=== PATIENT | female | born 1985 | race Caucasian/White ===

== ENCOUNTER → 2017-10-27 | Outpatient (RCR) | payer BC ==
[~2017-10-27] MED LIST: ACHD5005 PO; AMIT10TA6 PO; CEPH-38 PO; DICY20TA10 PO; DICY20TA33 PO; GBPN100C PO; RANI150T11 PO; SULF1TAB35 PO; TRAM50TA2 PO; VITAMIN D PO
== END | disposition home or self-care (01) ==
LOC: CARD 07:57
PROVIDERS: ATTEND Family Medicine
DX: R00.2 Palpitations (principal)
CPT/HCPCS: 93225; 93226

== ENCOUNTER → 2017-10-28 | Outpatient (CLI) | payer BC ==
--- NOTE | 2017-10-28 16:36 | Diagnostic Imaging Report ---
INDICATION: Pelvic pain. Polycystic ovarian syndrome. FINDINGS: The uterus measures 7.8 x 3.4 x 3.7 cm. The endometrial stripe is poorly visualized but appears to measure approximately 5 mm. No masses are demonstrated. The right ovary is not identified. The left ovary measures 2.6 x 2.1 x 3.6 cm. No follicular cysts are demonstrated. There is normal blood flow to the left ovary. There is no free fluid. IMPRESSION: 1. Limited pelvic ultrasound as described. 2. The uterus appears normal. 3. The left ovary is normal. 4. The right ovary is not visualized. Dictated by: Dictated on workstation # [id number]
== END ==
LOC: RAD 11:47
PROVIDERS: ATTEND Family Medicine
DX: N94.89 Other specified conditions associated with female genital organs and menstrual cycle (principal)
CPT/HCPCS: 76830; 76856

== ENCOUNTER → 2018-02-03 | Outpatient (CLI) | payer BC ==
[2018-02-03 11:00] LABS: BASOPHILS % (AUTO) 1 % (0-10); EOSINOPHILS # (AUTO) 0.2 10^3/uL (0.0-0.3); EOSINOPHILS % (AUTO) 3 % (0-10); HEMATOCRIT 41 % (35-52); HEMOGLOBIN 13.9 G/DL (11.5-16.0); LYMPHOCYTES # (AUTO) 1.5 X 10^3 (1.0-4.0); LYMPHOCYTES % (AUTO) 24 % (12-44); MEAN CORPUSCULAR HEMOGLOBIN 29 PG (25-34); MEAN CORPUSCULAR HGB CONC 34 G/DL (32-36); MEAN CORPUSCULAR VOLUME 86 FL (80-99); MEAN PLATELET VOLUME 10.6 FL (7.4-10.4); MONOCYTES # (AUTO) 0.4 X 10^3 (0.0-1.0); MONOCYTES % (AUTO) 7 % (0-12); NEUTROPHILS # (AUTO) 4.1 X 10^3 (1.8-7.8); NEUTROPHILS % (AUTO) 66 % (42-75); PLATELET COUNT 261 10^3/uL (130-400); RED BLOOD COUNT 4.76 10^6/uL (4.35-5.85); RED CELL DISTRIBUTION WIDTH 13.4 % (10.0-14.5); WHITE BLOOD COUNT 6.2 10^3/uL (4.3-11.0)
[2018-02-03 11:20] LABS: BUN/CREATININE RATIO 16; CALCIUM 9.7 MG/DL (8.5-10.1); CARBON DIOXIDE 25 MMOL/L (21-32); CHLORIDE 106 MMOL/L (98-107); CREATININE SERUM 0.68 MG/DL (0.60-1.30); GFR ESTIMATED > 60; GLUCOSE 90 MG/DL (70-105); POTASSIUM 4.2 MMOL/L (3.6-5.0); SODIUM 139 MMOL/L (135-145)
--- NOTE | 2018-02-03 12:16 | Diagnostic Imaging Report ---
PROCEDURE: CT urinary tract, rule out kidney stone. TECHNIQUE: Multiple contiguous axial images were obtained through the abdomen and pelvis without the use of intravenous contrast. INDICATION: Bilateral flank pain, right greater than left. COMPARISON: 02/24/2016. FINDINGS: Included portions of the lung bases are clear. CT abdomen: Kidneys have an unremarkable noncontrast CT appearance. No renal or ureteral calculi are identified on either side. Additionally, there is no hydroureteronephrosis or other evidence of obstruction. No focal renal masses are identified. The liver, spleen, pancreas, and adrenal glands have an unremarkable noncontrast CT appearance as well. Small bowel loops are nondistended. Normal appendix is identified. There is no loculated fluid collection, free fluid, or free air within the abdomen. No abnormal mesenteric or retroperitoneal adenopathy is seen. Bony structures show no acute abnormalities. CT pelvis: Urinary bladder is unopacified. No calculi are seen within the urinary bladder. Left ovarian cyst measures 4.1 x 4.4 cm and is new when compared to 02/24/2016. There is no free fluid, loculated fluid collection, or free air within the pelvis. No abnormal pelvic adenopathy is identified. Bony structures show no acute abnormalities. IMPRESSION: 1. Moderate-sized left ovarian cyst. Otherwise, unremarkable noncontrast CT of the abdomen and pelvis. Dictated by: Dictated on workstation # [id number]
== END ==
LOC: RAD 10:33
PROVIDERS: ATTEND Family Medicine
DX: N83.202 Unspecified ovarian cyst, left side (principal)
CPT/HCPCS: 36415; 74176; 80048; 85025

== ENCOUNTER → 2018-12-10 | Outpatient (CLI) | payer BC ==
[~2018-12-10] MED LIST changes: +CHOL200078 PO; +CRAN500T2 PO; +METF-760 PO; +PANT20TA3 PO; +PREG75CA PO; +SPIR100T4 PO
--- NOTE | 2018-12-10 13:01 | Diagnostic Imaging Report ---
PROCEDURE: US Non-ob pelvis comp/trans. TECHNIQUE: Multiple real-time grayscale images were obtained of the pelvis in various projections endovaginally. Transabdominal imaging was also performed. INDICATION: Abnormal uterine bleeding. FINDINGS: Uterus measures 6.8 x 4.0 x 3.4 cm. Endometrium is approximately 5 mm in thickness. No myometrial mass is seen. There is a small amount of fluid in the lower uterine segment in the endocervical canal. Right ovary measures 2.5 x 2.3 x 1.6 cm and the left ovary measures 2.7 x 1.6 x 1.9 cm. There appears to be blood flow to both ovaries. No adnexal mass or free fluid is seen. IMPRESSION: Unremarkable pelvic ultrasound apart from a small amount of fluid in the endocervical canal. Dictated by: Dictated on workstation # [id number]
== END ==
LOC: RAD 11:18
PROVIDERS: ATTEND Obstetrics & Gynecology
DX: N93.9 Abnormal uterine and vaginal bleeding, unspecified (principal)
CPT/HCPCS: 76830; 76856

== ENCOUNTER 2018-12-15 05:34 | Outpatient (CLI) | payer BC ==
[~2018-12-15] VITALS: Ht 152.4 cm; Wt 121.2 kg
[~2018-12-15 05:34] MED LIST changes: -CHOL200078 PO; -CRAN500T2 PO; -METF-760 PO; -PANT20TA3 PO; -PREG75CA PO; -SPIR100T4 PO
[2018-12-15] MEDS ORDERED: METF-760 PO (10:05)
[2018-12-15] MEDS ORDERED: CRAN500T2 PO (10:05)
[2018-12-15] MEDS ORDERED: PANT20TA3 PO (10:05)
[2018-12-15] MEDS ORDERED: CHOL200078 PO (10:05)
[2018-12-15] MEDS ORDERED: PREG75CA PO (10:05)
[2018-12-15] MEDS ORDERED: SPIR100T4 PO (10:05)
== END 2018-12-15 10:10 | disposition home or self-care (01) ==
LOC: PREOP 05:34
PROVIDERS: ATTEND Obstetrics & Gynecology
DX: Z01.818 Encounter for other preprocedural examination (principal)

== ENCOUNTER 2018-12-20 08:19 | Day surgery (SDC) | payer BC ==
[2018-12-20] VITALS (10 sets, daily range): BP systolic 121–149; BP diastolic 64–95
[~2018-12-20] VITALS: Ht 152.4 cm; Wt 121.2 kg
[~2018-12-20 08:19] MED LIST changes: +CHOL200078 PO; +CRAN500T2 PO; +METF-760 PO; +PANT20TA3 PO; +PREG75CA PO; +SPIR100T4 PO
[2018-12-20] MEDS ORDERED: LIDOCAINE PF 2% 5 ML (XYLOCAINE) VIAL ONE (08:41)
[2018-12-20] MEDS ORDERED: proPOfol 200 MG/20 ML (DIPRIVAN) VIAL IV ONE (08:41)
[2018-12-20] MEDS ORDERED: DEXAMETHASONE 10 MG/ML (DECADRON) 1 ML VIAL ONE (08:41)
[2018-12-20] MEDS ORDERED: fentaNYL INJECTION 100 MCG/2 ML AMP ONE (08:41)
[2018-12-20] MEDS ORDERED: ONDANSETRON 4 MG/2 ML (SDV) Z0FRAN ONE (08:41)
[2018-12-20] MEDS ORDERED: MIDAZOLAM 2 MG/2 ML (VERSED) VIAL ONE (08:42)
[2018-12-20] MEDS ORDERED: SEVOFLURANE (ULTANE) 15 ML INHAL SOLN ONE (08:42)
[2018-12-20] MEDS ORDERED: BUP/EPI 0.25% 1:200,000 (MARCAINE) 10 ML VIAL IJ ONE (08:50)
[2018-12-20] MEDS ORDERED: FAMOTIDINE 20MG/2ML IV (PEPCID) IVP ONE (08:50)
--- NOTE | 2018-12-20 08:58 | Progress Note-Pre Operative ---
Pre-Operative Progress Note H&P Reviewed The H&P was reviewed, patient examined and no changes noted. Date Seen by Provider: Dec 20, 2018 Time Seen by Provider: 08:45 Date H&P Reviewed: Dec 20, 2018 Time H&P Reviewed: 08:45 Pre-Operative Diagnosis: AUB, BMI 50 AMIRAH HERNÁNDEZ DO Dec 20, 2018 08:58
[2018-12-20] MEDS ORDERED: D5 LR IV SOLUTION 1,000 ML IV SCH (08:59)
[2018-12-20] MEDS ORDERED: HYDROcodone/APAP 5 MG/325 MG (LORTAB) TAB PO PRN (09:00)
[2018-12-20] MEDS: LACTATED RINGERS 1,000 ML IV PRN ×2 (09:00→10:15)
[2018-12-20] MEDS ORDERED: ONDANSETRON 4 MG/2 ML (SDV) Z0FRAN IVP PRN ×3 (09:00→10:30)
[2018-12-20] MEDS ORDERED: KETOROLAC 30 MG/ML VIAL IVP ONE (09:00)
[2018-12-20] MEDS ORDERED: IBUP-1773 PO (09:03)
[2018-12-20] MEDS ORDERED: ACHD5005 PO (09:03)
--- NOTE | 2018-12-20 09:04 | Discharge Inst-Women's Service ---
Discharge Inst-Women's Serv Depart Medication/Instructions New, Converted or Re-Newed RX: RX on Chart Problems Reviewed?: Yes Consults/Follow Up Additional Follow Up: Yes Orders/Referrals Dr. Hernández in 2-3 Activity Activity: Activity as Tolerated Driving Instructions: You May Drive NO SMOKING: NO SMOKING Nothing Inside Vagina: No Douching, No [place], No Tampons Diet Discharge Diet: No Restrictions Symptoms to Report to : Bleeding Excessive, Pain Increased, Fever Over 101 Degrees F, Vaginal Bleeding Increase, Questions/Concerns For Any Problems or Questions: Contact Your Physician AMIRAH HERNÁNDEZ DO Dec 20, 2018 09:04
[2018-12-20] MEDS ORDERED: FAMOTIDINE 20MG/2ML IV (PEPCID) ONE (09:09)
[2018-12-20 09:28] LABS: BASOPHILS % (AUTO) 1 % (0-10); EOSINOPHILS # (AUTO) 0.2 10^3/uL (0.0-0.3); EOSINOPHILS % (AUTO) 3 % (0-10); HEMATOCRIT 41 % (35-52); HEMOGLOBIN 13.7 G/DL (11.5-16.0); LYMPHOCYTES # (AUTO) 1.7 X 10^3 (1.0-4.0); LYMPHOCYTES % (AUTO) 31 % (12-44); MEAN CORPUSCULAR HEMOGLOBIN 29 PG (25-34); MEAN CORPUSCULAR HGB CONC 33 G/DL (32-36); MEAN CORPUSCULAR VOLUME 87 FL (80-99); MEAN PLATELET VOLUME 11.8 FL (7.4-10.4); MONOCYTES # (AUTO) 0.5 X 10^3 (0.0-1.0); MONOCYTES % (AUTO) 8 % (0-12); NEUTROPHILS # (AUTO) 3.2 X 10^3 (1.8-7.8); NEUTROPHILS % (AUTO) 58 % (42-75); PLATELET COUNT 252 10^3/uL (130-400); RED CELL DISTRIBUTION WIDTH 13.3 % (10.0-14.5); WHITE BLOOD COUNT 5.6 10^3/uL (4.3-11.0)
[2018-12-20] MEDS ORDERED: morphine INJ 10 MG/ML 1ML (SYR OR VIAL) IVP ONE ×2 (09:45→10:30)
[2018-12-20] MEDS ORDERED: LACTATED RINGERS 1,000 ML IV SCH (10:01)
[2018-12-20] MEDS ORDERED: NALOXONE 0.4 MG/ML 1 ML (NARCAN) VIAL IV PRN ×2 (10:15)
[2018-12-20] MEDS ORDERED: ONDANSETRON 4 MG/2 ML (SDV) Z0FRAN IV PRN (10:15)
[2018-12-20] MEDS ORDERED: diphenhydrAMINE 50 MG/ML INJ (BENADRYL) IV PRN (10:15)
[2018-12-20] MEDS ORDERED: EPIDURAL (SUFENTA 0.6MCG/ML BUPIVA 0.125%) 100 ML BAG EPI PRN (10:15)
[2018-12-20] MEDS ORDERED: METOCLOPRAMIDE INJ 10 MG/2 ML (REGLAN) IV PRN (10:15)
--- NOTE | 2018-12-20 11:47 | NUR ---
LORTAB 5/325 MG, ONE TAB, GIVEN PO FOR C/O CRAMPY PELVIC PAIN RATED 7. TAKING PO FLUIDS AND CRACKERS, REPORTS SLIGHT, INTERMITTENT NAUSEA. ZOFRAN 4 MG GIVEN IVP. HAVING MODERATE AMOUNT OF BRIGHT RED BLOODY DRAINAGE TO V-PAD.
--- NOTE | 2018-12-20 12:20 | NUR ---
RATES PELVIC PAIN 4. DENIES NAUSEA. UP TO BR WITH ASSIST, GAIT STEADY, VOIDED. ASSIST BACK TO ROOM AND STATES SHE IS READY TO PROCEED WITH DISMISSAL.
--- NOTE | 2018-12-20 12:47 | Anesthesia-General Post-Op ---
MAC Patient Condition Mental Status/LOC: Same as Preop Cardiovascular: Satisfactory Nausea/Vomiting: Absent Respiratory: Satisfactory Pain: Controlled Complications: Absent Post Op Complications Complications None Follow Up Care/Instructions Patient Instructions None needed. Anesthesiology Discharge Order Discharge Order Patient is doing well, no complaints, stable vital signs, no apparent adverse anesthesia problems. No complications reported per nursing. SEFERINO PARISI CRNA Dec 20, 2018 12:47
--- NOTE | 2018-12-20 21:23 | OPERATIVE REPORT ---
DATE OF SERVICE: 12/20/2018 PREOPERATIVE DIAGNOSES: 1. Abnormal uterine bleeding. 2. BMI greater than 50. POSTOPERATIVE DIAGNOSES: 1. Abnormal uterine bleeding. 2. BMI greater than 50. PROCEDURE: D and C, hysteroscopy. SURGEON: Amirah Hernández DO ANESTHESIA: General LMA. ESTIMATED BLOOD LOSS: Minimal. URINE OUTPUT: 100 mL drained at the start of procedure. FLUIDS: 500 mL of lactated Ringer's solution. FINDINGS: Grossly normal-appearing external female genitalia with hysteroscopic evaluation of the endometrium suggestive for possible arcuate shaped uterus, bilateral patent tubal ostia. No endometrial masses. SPECIMEN SENT: Endometrial curettings. INDICATION FOR PROCEDURE: This 33-year-old female is a patient in consultation from Dr. Skinnre at the [facility] for evaluation of heavy bleeding that has failed more conservative measures with management. I discussed with the patient due to her weight, I had significant concerns for endometrial hyperplasia or malignancy and discussed with her performing a D and C. Risks of the procedure was discussed with the patient in detail. We also discussed hysteroscopic evaluation at the time of the procedure due to some questionable findings on ultrasound. After all of her questions were answered, consent was obtained in the preoperative area and the patient was taken to the operating room. OPERATIVE REPORT IN DETAIL: Once in the operating room, general anesthesia was found to be adequate, she was placed in dorsal lithotomy position, prepped and draped in normal sterile fashion. A timeout was performed. The bladder was drained using straight catheterization. A weighted speculum was inserted into the patient's vagina. A right angle retractor was used to visualize the cervix, which was grasped at 12 o'clock position using a long Allis clamp. Paracervical block was then performed at 3 and 9 o'clock positions on the cervix. Care was taken to aspirate before injecting. 0.25% Marcaine was used as my local anesthetic and 5 mL were injected at each site. After this was done, I gently sound the uterine cavity, depth was found to be approximately 8 cm. I then gently dilated the cervix using Hegar dilators to maximum dilatation approximately 8 mm at which point, I advanced the hysteroscope into the intrauterine cavity using normal saline as my visual medium and the Webbynode fluid management system. I am able to visualize the findings as described in my findings above. There is no hysteroscopic dissection that needs to be performed due to no endometrial neoplasms identified. I then removed the hysteroscope and performed a gentle curettage using a small endometrial curette. A small to moderate amount of endometrial curettings were collected and sent as endometrial curettings, after which there was no active bleeding noted from any of my dissection planes. The instruments were removed from the patient's vagina. The patient tolerated the procedure well and sent to recovery area in stable condition. Lap and sponge counts were correct at the end of the procedure. Instrument count was correct as well. Job ID: [id number] DocumentID: [id number] Dictated Date: 12/20/2018 11:11:07 Trolley Coach Driver Date: 12/20/2018 21:21:49 Dictated By: AMIRAH HERNÁNDEZ DO
== END 2018-12-20 12:52 | disposition home or self-care (01) ==
LOC: SDC 08:19
PROVIDERS: ATTEND Obstetrics & Gynecology
DX: N93.9 Abnormal uterine and vaginal bleeding, unspecified (principal); K21.9 Gastro-esophageal reflux disease without esophagitis; E66.01 Morbid (severe) obesity due to excess calories; G43.909 Migraine, unspecified, not intractable, without status migrainosus; K58.9 Irritable bowel syndrome, unspecified; F32.9 Major depressive disorder, single episode, unspecified; F41.9 Anxiety disorder, unspecified; F43.10 Post-traumatic stress disorder, unspecified; Z68.43 Body mass index [BMI] 50.0-59.9, adult; Z88.8 Allergy status to other drugs, medicaments and biological substances; Z88.0 Allergy status to penicillin; Z88.6 Allergy status to analgesic agent; Z91.040 Latex allergy status; Z79.51 Long term (current) use of inhaled steroids; Z79.899 Other long term (current) drug therapy; Z80.0 Family history of malignant neoplasm of digestive organs; Z83.3 Family history of diabetes mellitus; Z82.49 Family history of ischemic heart disease and other diseases of the circulatory system; Z82.5 Family history of asthma and other chronic lower respiratory diseases; Z87.891 Personal history of nicotine dependence; Z79.84 Long term (current) use of oral hypoglycemic drugs
CPT/HCPCS: 36415; 84703; 85025; 86850; 86900; 86901; 87081

== ENCOUNTER 2019-06-01 12:58 | Emergency (ER) | payer BC ==
[~2019-06-01] VITALS: Ht 152 cm; Wt 120.0 kg
[~2019-06-01 12:58] MED LIST changes: +IBUP-1773 PO
[2019-06-01] MEDS ORDERED: KETOROLAC 30 MG/ML VIAL IVP STA (13:06)
[2019-06-01] MEDS ORDERED: NS IV 1000 ML 1,000 ML IV STA (13:06)
--- NOTE | 2019-06-01 13:06 | ED Abdominal Pain ---
General Chief Complaint: Abdominal/GI Problems Stated Complaint: ABD PAIN,VOMITING Nursing Triage Note: RIGHT SIDED ABD PAIN THAT RADIATES INTO HER BACK THAT STARTED LAST NIGHT. Sepsis Screen: No Definite Risk Source of Information: Patient Exam Limitations: No Limitations History of Present Illness Date Seen by Provider: Jun 01, 2019 Time Seen by Provider: 13:06 Initial Comments 33-year-old female presents with right-sided lower abdominal pain that radiates into her right flank. He reports the pain started last night. That she is had some nausea and vomiting with it, no diarrhea. She denies any urinary symptoms. She reports that the pain is got significant worse since last night. She denies any fevers or chills. She denies any cough, chest pain or other systemic complaints. She reports a normal bowel movement this morning. Allergies and Home Medications Allergies Coded Allergies: latex (Unverified Allergy, Intermediate, RASH, 06/10/11) Penicillins (Verified Allergy, Unknown, Nausea, 12/15/18) aspirin (Unverified Adverse Reaction, Mild, VOMITTING, 06/10/11) diphenhydramine HCl (Unverified Adverse Reaction, Mild, GETS VERY DROWSY , 12/20/18) Home Medications Cholecalciferol (Vitamin D3) 2,000 Unit Tab.chew, 2,000 UNIT PO DAILY, (Reported) Cranberry Extract 500 Mg Tablet, 500 MG PO DAILY, (Reported) Dicyclomine HCl 20 Mg Tablet, 20 MG PO Q6H PRN for CRAMPS, (Reported) Hydrocodone Bit/Acetaminophen 1 Tab Tab, 1 TAB PO Q4H PRN for PAIN-MODERATE Prescribed by: AMIRAH HERNÁNDEZ on 12/20/18902 Ibuprofen 600 Mg Tablet, 600 MG PO Q6H Prescribed by: AMIRAH HERNÁNDEZ on 12/20/18902 Metformin HCl 500 Mg [id number], 1,000 MG PO DAILY@1800, (Reported) take 2 (500mg) tabs with evening meal Pantoprazole Sodium 20 Mg Tablet.dr, 20 MG PO DAILY, (Reported) Pregabalin 75 Mg Capsule, 75 MG PO BID, (Reported) Ranitidine HCl 150 Mg Tablet, 150 MG PO BID PRN for HEARTBURN, (Reported) Spironolactone 100 Mg Tablet, 100 MG PO BID, (Reported) Patient Home Medication List Home Medication List Reviewed: Yes Review of Systems Review of Systems Constitutional: No chills, No fever EENTM: No Symptoms Reported Respiratory: Denies Cough, Denies SOA at Rest Cardiovascular: Denies Chest Pain, Denies Irregular Heart Rate Gastrointestinal: See HPI, Abdominal Pain; Denies Constipated, Denies Diarrhea; Nausea, Vomiting Musculoskeletal: back pain (right flank ) Skin: no symptoms reported Past Ohbmlnl-Wvffjc-Oogjda Hx Past Med/Social Hx: Reviewed Nursing Past Med/Soc Hx Patient Social History Alcohol Beverage of Choice: Wine Type Used: Cigarettes Former Smoker, Quit: Mar 30, 2006 Recent Foreign Travel: No Contact w/Someone Who Travel: No Recent Infectious Disease Expo: No Recent Hopitalizations: No Immunizations Up To Date Tetanus Booster (TDap): Less than 5yrs Date of Pneumonia Vaccine: Feb 23, 2011 Date of Influenza Vaccine: Dec 29, 2015 Seasonal Allergies Seasonal Allergies: Yes Past Medical History Surgeries: Yes (bmt x7, rectal fistulotomy) Tonsillectomy Respiratory: Yes (carries inhaler with her) Asthma Currently Using CPAP: No Currently Using BIPAP: No Cardiac: Yes Palpitations Neurological: Yes Headaches /Migraines Reproductive Disorders: No Female Reproductive Disorders: Polycystic Ovarian Dis Genitourinary: Yes (hx renal failure) Gastrointestinal: Yes Gastroesophageal Reflux, Irritable Bowel Musculoskeletal: Yes Fibromyalgia, Fractures Endocrine: No HEENT: No Hearing Impairment: Denies Cancer: No Psychosocial: Yes Anxiety, PTSD, Depression Integumentary: No Blood Disorders: No Adverse Reaction/Blood Tranf: No Family Medical History FHx: cancer of ovary 17 MOTHER G8 SISTER Physical Exam Vital Signs Vital Signs - First Documented 06/01/19 13:02 Temp 36.4 Pulse 80 Resp 16 B/P (MAP) 129/70 (89) Pulse Ox 97 O2 Delivery Room Air Capillary Refill : Less Than 3 Seconds Height/Weight/BMI Height: 4'11.00" Weight: 239lbs. 8.0oz. 108.087832kg; 51.00 BMI Method:Estimated General Appearance: mild distress HEENT: PERRL/EOMI Neck: full range of motion, supple Respiratory: chest non-tender, lungs clear, normal breath sounds Cardiovascular: normal peripheral pulses, regular rate, rhythm Gastrointestinal: soft; No guarding, No rebound; tenderness (RLQ) Extremities: normal range of motion, non-tender Back: CVA tenderness (R) Neurologic/Psychiatric: alert, normal mood/affect, oriented x 3 Skin: normal color, warm/dry Progress/Results/Core Measures Results/Orders Lab Results Laboratory Tests Test 06/01/19 13:05 06/01/19 13:09 Range/Units White Blood Count 9.8 4.3-11.0 10^3/uL Red Blood Count 4.74 4.35-5.85 10^6/uL Hemoglobin 13.7 11.5-16.0 G/DL Hematocrit 41 35-52 % Mean Corpuscular Volume 86 80-99 FL Mean Corpuscular Hemoglobin 29 25-34 PG Mean Corpuscular Hemoglobin Concent 34 32-36 G/DL Red Cell Distribution Width 13.7 10.0-14.5 % Platelet Count 276 130-400 10^3/uL Mean Platelet Volume 10.9 H 7.4-10.4 FL Neutrophils (%) (Auto) 74 42-75 % Lymphocytes (%) (Auto) 19 12-44 % Monocytes (%) (Auto) 6 0-12 % Eosinophils (%) (Auto) 1 0-10 % Basophils (%) (Auto) 0 0-10 % Neutrophils # (Auto) 7.2 1.8-7.8 X 10^3 Lymphocytes # (Auto) 1.9 1.0-4.0 X 10^3 Monocytes # (Auto) 0.6 0.0-1.0 X 10^3 Eosinophils # (Auto) 0.1 0.0-0.3 10^3/uL Basophils # (Auto) 0.0 0.0-0.1 10^3/uL Sodium Level 138 135-145 MMOL/L Potassium Level 3.8 3.6-5.0 MMOL/L Chloride Level 104 98-107 MMOL/L Carbon Dioxide Level 26 21-32 MMOL/L Anion Gap 8 5-14 MMOL/L Blood Urea Nitrogen 10 7-18 MG/DL Creatinine 0.73 0.60-1.30 MG/DL Estimat Glomerular Filtration Rate > 60 BUN/Creatinine Ratio 14 Glucose Level 85 70-105 MG/DL Calcium Level 9.7 8.5-10.1 MG/DL Corrected Calcium 8.5-10.1 MG/DL Total Bilirubin 0.3 0.1-1.0 MG/DL Aspartate Amino Transf (AST/SGOT) 15 5-34 U/L Alanine Aminotransferase (ALT/SGPT) 14 0-55 U/L Alkaline Phosphatase 61 40-136 U/L C-Reactive Protein High Sensitivity 0.59 H 0.00-0.50 MG/DL Total Protein 7.7 6.4-8.2 GM/DL Albumin 4.6 H 3.2-4.5 GM/DL Lipase 19 8-78 U/L Urine Color YELLOW Urine Clarity CLEAR Urine pH 6.0 5-9 Urine Specific [place] 1.015 L 1.016-1.022 Urine Protein NEGATIVE NEGATIVE Urine Glucose (UA) NEGATIVE NEGATIVE Urine Ketones NEGATIVE NEGATIVE Urine Nitrite NEGATIVE NEGATIVE Urine Bilirubin NEGATIVE NEGATIVE Urine Urobilinogen 0.2 < = 1.0 MG/DL Urine Leukocyte Esterase NEGATIVE NEGATIVE Urine RBC (Auto) TRACE-I NEGATIVE Urine RBC RARE /HPF Urine WBC NONE /HPF Urine Squamous Epithelial Cells 2-5 /HPF Urine Crystals NONE /LPF Urine Bacteria NEGATIVE /HPF Urine Casts NONE /LPF Urine Mucus NEGATIVE /LPF Urine Culture Indicated NO My Orders Orders - MAHAN,ANDRES L DO Abdomen/Kub 1view (06/01/19 13:06) Cbc With Automated Diff (06/01/19 13:06) Comprehensive Metabolic Panel (06/01/19 13:06) Hs C Reactive Protein (06/01/19 13:06) Lipase (06/01/19 13:06) Ua Culture If Indicated (06/01/19 13:06) Ondansetron Injection (Zofran Injectio (06/01/19 13:15) Ns Iv 1000 Ml (Sodium Chloride 0.9%) (06/01/19 13:06) Ed Iv/Invasive Line Start (06/01/19 13:06) Ketorolac Injection (Toradol Injection) (06/01/19 13:06) Fentanyl Injection (Sublimaze Injection (06/01/19 14:02) Ct Abd/Pelv W (Appendicitis) (06/01/19 14:02) Iohexol Injection (Omnipaque 350 Mg/Ml 1 (06/01/19 14:15) Received Contrast (Hold Metformin- Contr (06/01/19 14:15) Ns (Ivpb) (Sodium Chloride 0.9% Ivpb Bag (06/01/19 14:15) Medications Given in ED Current Medications Medications Dose Ordered Sig/Radha Route Start Time Stop Time Status Last Admin Dose Admin Iohexol 100 ml ONCE ONCE IV 06/01/19 14:15 06/01/19 14:19 DC 06/01/19 14:38 100 ML Ondansetron HCl 4 mg ONCE ONCE IVP 06/01/19 13:15 06/01/19 13:16 DC 06/01/19 13:15 4 MG Sodium Chloride 100 ml ONCE ONCE IV 06/01/19 14:15 06/01/19 14:19 DC 06/01/19 14:38 80 ML Vital Signs/I&O 06/01/19 06/01/19 13:02 16:00 Temp 36.4 Pulse 80 68 Resp 16 16 B/P (MAP) 129/70 (89) 122/70 (89) Pulse Ox 97 97 O2 Delivery Room Air Blood Pressure Mean: 89 Diagnostic Imaging Comments DAWSON: JOHN GENAO I [facility] REC#: [id number] PT STATUS: REG ER : 1985 PHYSICIAN: ANDRES MAHAN DO ADMIT DATE: 06/01/19/ER Signed Date of Exam:06/01/19 ABDOMEN/KUB 1VIEW Indication: Right-sided abdominal pain KUB 1:44 PM Bowel gas pattern is normal. There is a moderate amount of stool present throughout the colon. There are no pathologic masses or calcifications. IMPRESSION: Moderate fecal stasis. No acute abnormalities in the abdomen. Departure Impression Primary Impression: Constipation Qualified Codes: K59.00 - Constipation, unspecified Additional Impression: Abdominal pain Qualified Codes: R10.31 - Right lower quadrant pain Disposition: 01 HOME, SELF-CARE Condition: Stable Departure-Patient Inst. Referrals: SHARON DAWSON MD (PCP/Family) Primary Care Physician Patient Instructions: Acute Abdomen (Belly Pain), Adult (DC), Constipation in Adults Add. Discharge Instructions: Emergency department focuses on treating and ruling out life-threatening diseases. Whenever possible, a diagnosis is given. However, most patients are given an impression based on their history, physical exam, and workup during y our brief time in the ER. Information about probable diagnosis and other educational material has been provided. Please take the time to read and understand this information. It is very important that you follow up with a physician as discussed during the visit today. Failure to adhere to your follow-up instructions may lead to severe disability, injury, or so please make sure to keep your appointments or obtain one as requested. Please keep in mind the emergency department is not designed to your primary care or "family doctor" and nonurgent issues are best evaluated by an outpatient physician All discharge instructions reviewed with patient and/or family. Voiced understanding. ANDRES MAHAN DO Jun 01, 2019 13:06
[2019-06-01 13:15] LABS: BASOPHILS % (AUTO) 0 % (0-10); EOSINOPHILS # (AUTO) 0.1 10^3/uL (0.0-0.3); EOSINOPHILS % (AUTO) 1 % (0-10); HEMATOCRIT 41 % (35-52); HEMOGLOBIN 13.7 G/DL (11.5-16.0); LYMPHOCYTES # (AUTO) 1.9 X 10^3 (1.0-4.0); LYMPHOCYTES % (AUTO) 19 % (12-44); MEAN CORPUSCULAR HEMOGLOBIN 29 PG (25-34); MEAN CORPUSCULAR HGB CONC 34 G/DL (32-36); MEAN CORPUSCULAR VOLUME 86 FL (80-99); MEAN PLATELET VOLUME 10.9 FL (7.4-10.4); MONOCYTES # (AUTO) 0.6 X 10^3 (0.0-1.0); MONOCYTES % (AUTO) 6 % (0-12); NEUTROPHILS # (AUTO) 7.2 X 10^3 (1.8-7.8); NEUTROPHILS % (AUTO) 74 % (42-75); PLATELET COUNT 276 10^3/uL (130-400); RED CELL DISTRIBUTION WIDTH 13.7 % (10.0-14.5); WHITE BLOOD COUNT 9.8 10^3/uL (4.3-11.0)
[2019-06-01] MEDS ORDERED: ONDANSETRON 4 MG/2 ML (SDV) Z0FRAN IVP ONE (13:15)
[2019-06-01 13:22] LABS: BILIRUBIN,URINE NEGATIVE (NEGATIVE); CLARITY,URINE CLEAR; COLOR,URINE YELLOW; GLUCOSE, URINE (UA) NEGATIVE (NEGATIVE); KETONES,URINE NEGATIVE (NEGATIVE); LEUKOCYTE ESTERASE ,URINE NEGATIVE (NEGATIVE); NITRITE,URINE NEGATIVE (NEGATIVE); PROTEIN,URINE NEGATIVE (NEGATIVE)
[2019-06-01 13:36] LABS: BACTERIA,URINE NEGATIVE /HPF; RBC,URINE RARE /HPF
--- NOTE | 2019-06-01 13:43 | Diagnostic Imaging Report ---
Indication: Right-sided abdominal pain KUB 1:44 PM Bowel gas pattern is normal. There is a moderate amount of stool present throughout the colon. There are no pathologic masses or calcifications. IMPRESSION: Moderate fecal stasis. No acute abnormalities in the abdomen. Dictated by: Dictated on workstation # [id number]
[2019-06-01 13:44] LABS: ALANINE AMINOTRANSFERASE 14 U/L (0-55); ALBUMIN 4.6 GM/DL (3.2-4.5); ALKALINE PHOSPHATASE 61 U/L (40-136); BILIRUBIN,TOTAL 0.3 MG/DL (0.1-1.0); BUN/CREATININE RATIO 14; CALCIUM 9.7 MG/DL (8.5-10.1); CARBON DIOXIDE 26 MMOL/L (21-32); CHLORIDE 104 MMOL/L (98-107); CREATININE SERUM 0.73 MG/DL (0.60-1.30); GFR ESTIMATED > 60; GLUCOSE 85 MG/DL (70-105); LIPASE 19 U/L (8-78); POTASSIUM 3.8 MMOL/L (3.6-5.0); SODIUM 138 MMOL/L (135-145); TOTAL PROTEIN 7.7 GM/DL (6.4-8.2)
--- NOTE | 2019-06-01 14:00 | NUR ---
PT CO OF PAIN NOT ANY BETTER
[2019-06-01] MEDS ORDERED: fentaNYL INJECTION 100 MCG/2 ML AMP IVP STA (14:02)
[2019-06-01] MEDS ORDERED: IOHEXOL 350 MG/ML 100 ML (OMNIPAQUE 350) VIAL IV ONE (14:15)
[2019-06-01] MEDS ORDERED: HOLD METFORMIN - RECEIVED CONTRAST 20 ML VIAL IV SCH (14:15)
[2019-06-01] MEDS ORDERED: NS 100 ML (IVPB) BAG IV ONE (14:15)
--- NOTE | 2019-06-01 14:54 | Diagnostic Imaging Report ---
PROCEDURE: CT abdomen and pelvis with contrast, rule out appendicitis. TECHNIQUE: Multiple contiguous axial images were obtained through the abdomen and pelvis after the administration of intravenous contrast. All CT scans use one or more of the following dose optimizing techniques: automated exposure control, MA and/or KvP adjustment based on a patient size and exam type, or iterative reconstruction. INDICATION: Right-sided pain radiating into the back. COMPARISON: Compared with noncontrasted exam 02/03/2018. FINDINGS: No pericecal or periappendiceal inflammatory changes. There are no findings of appendicitis. There is a follicular cyst in the left ovary. The uterus, adnexa and urinary bladder showed no pathological finding. There is no diverticulitis. There is no bowel obstruction. There is no hydroureteronephrosis. No perinephric or periureteric edema. Liver, gallbladder, spleen, adrenals, pancreas all unremarkable. The vascular structures patent. No ascites, abscess, hematoma, fluid collection, pneumatosis or free air. IMPRESSION: No evidence for appendicitis, diverticulitis or urinary tract pathology. Unremarkable abdominopelvic CT with no acute appearing abnormality. Dictated by: Dictated on workstation # [id number]
[2019-06-01 16:00] VITALS: BP 122/70
== END 2019-06-01 16:00 | disposition home or self-care (01) ==
LOC: EDUNIT# 12:58 → ER 12:59
DX: K59.00 Constipation, unspecified (principal); J45.909 Unspecified asthma, uncomplicated; K21.9 Gastro-esophageal reflux disease without esophagitis; Z87.891 Personal history of nicotine dependence; Z88.0 Allergy status to penicillin; Z88.6 Allergy status to analgesic agent; Z91.040 Latex allergy status; Z88.8 Allergy status to other drugs, medicaments and biological substances; Z79.84 Long term (current) use of oral hypoglycemic drugs; Z80.41 Family history of malignant neoplasm of ovary
CPT/HCPCS: 36415; 74018; 74177; 80053; 81000; 83690; 85025; 86141

== ENCOUNTER → 2022-04-11 | Outpatient (CLI) | payer BC ==
[~2022-04-11] MED LIST changes: -CRAN500T2 PO; +CRAN500T4 PO; +DICY20TA PO; -DICY20TA10 PO; -METF-760 PO; +METF-845 PO; +PANT20TA18 PO; -PANT20TA3 PO; -SULF1TAB35 PO; +SULF1TAB38 PO
--- NOTE | 2022-04-11 10:08 | Diagnostic Imaging Report ---
CLINICAL INDICATION: Patient with sinus infection since COVID a year ago. EXAM: Axial CT scan of the maxillofacial structures without IV contrast . Coronal and sagittal reformations were performed. Auto Exposure Controls were utilized during the CT exam to meet ALARA standards for radiation dose reduction. COMPARISON: None. FINDINGS: PARANASAL SINUSES: FRONTAL: Unremarkable. ETHMOID: There is minimal mucosal thickening involving ethmoid sinus. MAXILLARY: There is a small amount of mucosal thickening involving left maxillary sinus and minimal amount involving the right maxillary sinus. SPHENOID: There is moderate to large amounts of consolidation involving the sphenoid sinus with the left side affected more than the right. OTHER PARANASAL SINUS FINDINGS: There is francois bullosa of both middle nasal turbinates with mucosal thickening involving the right side. Nasal cavity is otherwise patent without significant obstruction. The ostiomeatal unit regions are patent. NASAL SEPTUM: Relatively midline. No significant bony spurs. VISUALIZED TEMPORAL BONE STRUCTURES: There is small amount of consolidation involving right mastoid air cells. BONY STRUCTURES: Unremarkable. EXTRACRANIAL SOFT TISSUE/ ORBITS: Unremarkable. IMPRESSION: 1: There is mild to moderate paranasal sinus disease with the sphenoid sinus and left maxillary sinus affected the most. 2: There is francois bullosa involving both middle nasal turbinates with mucosal thickening involving the right side. The nasal cavity is otherwise clear with no obstruction. The ostiomeatal unit regions are patent. 3.: There is a small amount of consolidation involving the right mastoid air cells which may represent fluid. Dictated by: Dictated on workstation # [id number]
== END ==
LOC: RAD 09:07
PROVIDERS: ATTEND Family Medicine
DX: J32.4 Chronic pansinusitis (principal)
CPT/HCPCS: 70486

== ENCOUNTER 2022-09-11 05:28 | Outpatient (CLI) | payer BC ==
[~2022-09-11] VITALS: Ht 149.8 cm; Wt 127.3 kg
[2022-09-11] MEDS ORDERED: ALBU8.5H6 (13:10)
[2022-09-11] MEDS ORDERED: FLUT9.9S NS (13:10)
[2022-09-11] MEDS ORDERED: MONT-47 PO (13:10)
[2022-09-11] MEDS ORDERED: LORA-404 PO (13:10)
[2022-09-11] MEDS ORDERED: SEMA1PEN3 SQ (13:10)
[2022-09-11] MEDS ORDERED: PREG200C PO (13:10)
[2022-09-11] MEDS ORDERED: ONDA8TAB13 SL (13:10)
[2022-09-11] MEDS ORDERED: FLUT1DIS26 IH (13:10)
[2022-09-11] MEDS ORDERED: SUMA25TA4 PO (13:10)
[2022-09-11] MEDS ORDERED: BUPR200T7 PO (13:10)
== END 2022-09-11 13:12 | disposition home or self-care (01) ==
LOC: PREOP 05:28
PROVIDERS: ATTEND Otolaryngology Otolaryngology/Facial Plastic Surgery
DX: Z01.818 Encounter for other preprocedural examination (principal)

== ENCOUNTER 2022-09-18 05:52 | Day surgery (SDC) | payer BC ==
[2022-09-18] VITALS (11 sets, daily range): BP systolic 111–145; BP diastolic 59–82
[~2022-09-18] VITALS: Ht 149.8 cm; Wt 127.3 kg
[~2022-09-18 05:52] MED LIST changes: +ALBU8.5H6; +BUPR200T7 PO; +FLUT1DIS26 IH; +FLUT9.9S NS; +LORA-404 PO; +MONT-47 PO; +ONDA8TAB13 SL; +PREG200C PO; +SEMA1PEN3 SQ; +SUMA25TA4 PO
[2022-09-18] MEDS ORDERED: HYDROCORTISONE 100 MG/2 ML (Solu-CORTEF) VIAL ONE (06:31)
[2022-09-18] MEDS: LACTATED RINGERS 1,000 ML IV PRN ×2 (06:34→08:56)
[2022-09-18 06:36] LABS: BASOPHILS % (AUTO) 0 % (0-10); EOSINOPHILS # (AUTO) 0.2 10^3/uL (0.0-0.3); EOSINOPHILS % (AUTO) 2 % (0-10); HEMATOCRIT 41 % (35-52); HEMOGLOBIN 13.6 g/dL (11.5-16.0); LYMPHOCYTES # (AUTO) 3.4 10^3/uL (1.0-4.0); LYMPHOCYTES % (AUTO) 35 % (12-44); MEAN CORPUSCULAR HEMOGLOBIN 29 pg (25-34); MEAN CORPUSCULAR HGB CONC 33 g/dL (32-36); MEAN CORPUSCULAR VOLUME 87 fL (80-99); MONOCYTES # (AUTO) 0.7 10^3/uL (0.0-1.0); MONOCYTES % (AUTO) 7 % (0-12); NEUTROPHILS # (AUTO) 5.2 10^3/uL (1.8-7.8); NEUTROPHILS % (AUTO) 55 % (42-75); PLATELET COUNT 247 10^3/uL (130-400); WHITE BLOOD COUNT 9.5 10^3/uL (4.3-11.0)
[2022-09-18 06:43] LABS: POTASSIUM 3.6 MMOL/L (3.6-5.0)
[2022-09-18 06:45] LABS: CALCIUM 9.2 MG/DL (8.5-10.1)
[2022-09-18 06:49] LABS: CREATININE SERUM 0.7 MG/DL (0.60-1.30)
--- NOTE | 2022-09-18 07:09 | Progress Note-Pre Operative ---
Pre-Operative Progress Note Date of Available H&P: Sep 18, 2022 Date H&P Reviewed: Sep 18, 2022 Time H&P Reviewed: 06:30 History & Physical: H&P Reviewed, Patient Examed, No changes noted Changes from last HP none Pre-Operative Diagnosis: Bilat Chronic Sinusitis, Bilat hyper of Inf Turbs, Edison Septum AMIRAH HA MD Sep 18, 2022 07:09
--- NOTE | 2022-09-18 07:09 | Progress Note-Post Operative ---
Post-Operative Progess Note Surgeon (s)/Keymodule Assembly Supervisor (s) Surgeon AMIRAH HA MD Keymodule Assembly Supervisor n/a Pre-Operative Diagnosis Bilat Chronic Sinusitis, Bilat hyper of Inf Turbs, Edison Septum Post-Operative Diagnosis same Post-Op Procedure Note Date of Procedure: Sep 18, 2022 Name of Procedure Performed: Bilat ESS, Bilat Red of Inf Turbs Description & Findings Description and Findings: n/a Anesthesia Type get Estimated Blood Loss minimal Packing none. Specimen(s) collected/removed chrnic sinus disesae AMIRAH Mendoza MD Sep 18, 2022 07:09
[2022-09-18] MEDS ORDERED: D5 1/2 NS W/KCL 20 MEQ/L 1,000 ML IV SCH (07:15)
[2022-09-18] MEDS ORDERED: oxyCODONE/APAP 5/325MG (PERCOCET 5) TABLET PO PRN (07:15)
[2022-09-18] MEDS ORDERED: PROMETHAZINE INJ 25 MG/ML (PHENERGAN) AMP IVP PRN (07:15)
[2022-09-18] MEDS ORDERED: HYDROCORTISONE 100 MG/2 ML (Solu-CORTEF) VIAL IV ONE (07:15)
[2022-09-18] MEDS ORDERED: COCAINE HCL 4% 2 ML SYR ONE (07:20)
[2022-09-18] MEDS ORDERED: PHENYLEPHRINE 0.5% NASAL SPR (NEO-SYNEPHRINE) REG ONE (07:20)
[2022-09-18] MEDS ORDERED: MUPIROCIN 2% OINT 22 GM (BACTROBAN) TUBE ONE (07:20)
[2022-09-18] MEDS ORDERED: LIDOCAINE/EPI 1%-1:100,000 (XYLOCAINE) 20ML ONE (07:21)
[2022-09-18] MEDS ORDERED: LEVOFLOXACIN 500 MG/D5W 100 ML (PRE-MIX) IV ONE (07:30)
[2022-09-18] MEDS ORDERED: BSS 15 ML ONE (07:35)
[2022-09-18] MEDS ORDERED: proPOfol 200 MG/20 ML (DIPRIVAN) VIAL IV ONE (07:59)
[2022-09-18] MEDS ORDERED: GLYCOPYRROLATE 0.2 MG/ML (ROBINUL) 2 ML VIAL ONE (07:59)
[2022-09-18] MEDS ORDERED: fentaNYL INJ 100 MCG/2 ML AMP ONE (07:59)
[2022-09-18] MEDS ORDERED: MIDAZOLAM 2 MG/2 ML (VERSED) VIAL ONE (07:59)
[2022-09-18] MEDS ORDERED: LIDOCAINE PF 2% 5 ML (XYLOCAINE) VIAL ONE (07:59)
[2022-09-18] MEDS ORDERED: ONDANSETRON 4 MG/2 ML (SDV) Z0FRAN ONE ×2 (07:59→11:25)
[2022-09-18] MEDS ORDERED: predniSONE 20 MG TAB PO ONE (08:00)
[2022-09-18] MEDS ORDERED: NEOSTIGMINE (BLOXIVERZ ) 1 MG/1ML 10 ML VIAL ONE (08:39)
[2022-09-18] MEDS ORDERED: SEVOFLURANE (ULTANE) 15 ML INHAL SOLN ONE (09:06)
[2022-09-18] MEDS ORDERED: morphine INJ 10 MG/ML 1ML (SYR OR VIAL) ONE (09:40)
[2022-09-18] MEDS ORDERED: morphine INJ 10 MG/ML 1ML (SYR OR VIAL) IVP ONE (09:45)
[2022-09-18] MEDS ORDERED: HYDROmorphone 2 MG/ML VIAL (DILAUDID) IV ONE (09:45)
[2022-09-18] MEDS ORDERED: ONDANSETRON 4 MG/2 ML (SDV) Z0FRAN IVP PRN (09:45)
--- NOTE | 2022-09-18 10:15 | Anesthesia-General Post-Op ---
General Patient Condition Mental Status/LOC: Same as Preop Cardiovascular: Satisfactory Nausea/Vomiting: Absent Respiratory: Satisfactory Pain: Controlled Complications: Absent Post Op Complications Complications None Follow Up Care/Instructions Patient Instructions None needed. Anesthesia/Patient Condition Patient Condition Patient is awake in PACU and doing well. She does complain of some pain/pressure in the nose, which is to be expected. She has stable vital signs, no apparent adverse anesthesia problems. No complications reported per nursing. ROSE ANGLIN DO Sep 18, 2022 10:15
== END 2022-09-18 11:23 | disposition home or self-care (01) ==
LOC: SDC 05:52
PROVIDERS: ATTEND Otolaryngology Otolaryngology/Facial Plastic Surgery
DX: J32.8 Other chronic sinusitis (principal); J34.3 Hypertrophy of nasal turbinates; J34.2 Deviated nasal septum; J34.1 Cyst and mucocele of nose and nasal sinus; Z87.891 Personal history of nicotine dependence
CPT/HCPCS: 36415; 80048; 82947; 84703; 85025; 87081; 88305